=== PATIENT | female | born 1975 | race Caucasian/White ===

== ENCOUNTER 2023-07-02 20:22 | Emergency (ER) | payer MEDICAID, OTHER ==
[~2023-07-02] VITALS: Ht 165.1 cm; Wt 70.0 kg
[2023-07-02 20:43] VITALS: TEMP 98.2; O2SAT 100
[2023-07-02 21:45] LABS: BASOPHILS % 0.8 % (0.0-2.0); EOSINOPHILS % 3.7 % (0.0-5.0); HEMATOCRIT. 27.8 % (36.0-48.0); HEMOGLOBIN. 8.5 g/dL (12.0-16.0); LYMPHOCYTES % 26.4 % (20.0-50.0); MEAN CORPUSCULAR HEMOGLOBIN 20.3 pg (28.0-32.0); MEAN CORPUSCULAR HGB CONC 30.7 g/dL (31.0-37.0); MEAN CORPUSCULAR VOLUME 66.1 fL (81.0-99.0); MEAN PLATELET VOLUME 7.6 fl (7.4-10.4); NEUTROPHILS % 61.1 % (40.0-76.0); PLATELET 468 x1000/uL (130-400); RED CELL DISTRIBUTION WIDTH 18.3 % (11.6-14.6); WHITE BLOOD COUNT 7.4 x1000/uL (4.5-11.0)
[2023-07-02 21:47] LABS: ADD RBC MORPHOLOGY YES; DIFFERENTIAL COMMENT 1
[2023-07-02 21:51] LABS: CHLORIDE 107 mEq/L (98-107); POTASSIUM 4.3 mEq/L (3.5-5.1); SODIUM 139 mEq/L (136-145)
[2023-07-02 21:52] LABS: CARBON DIOXIDE 25 mEq/L (21-32)
[2023-07-02 21:53] LABS: CALCIUM 9.9 mg/dL (8.7-10.4)
[2023-07-02 21:57] LABS: CREATININE 0.8 mg/dL (0.6-1.0); GLUCOSE 99 mg/dL (70-105)
[2023-07-02 21:58] LABS: ANISOCYTOSIS 2+; HYPOCHROMASIA 2+; MICROCYTOSIS 3+; PLATELET ESTIMATE INCREASED; UREA NITROGEN BLOOD 9 mg/dL (9-23)
[2023-07-02 21:59] LABS: ALANINE AMINOTRANSFERASE 9 IU/L (10-49); ALBUMIN 4.6 g/dL (3.2-4.8); ASPARTATE AMINOTRANSFERASE 18 IU/L (<34); OVALOCYTES 1+
[2023-07-02 22:00] LABS: BILIRUBIN TOTAL 0.3 mg/dL (0.1-1.0); PROTEIN TOTAL 8.2 g/dL (6.0-8.3)
[2023-07-02] MEDS: ONDANSETRON HCL 4MG TABLET PO ONE (22:37)
[2023-07-02 23:32] VITALS: BP 112/53; PULSE 65; RESP 18
[2023-07-02] MEDS: KETOROLAC 15MG/ML VIAL IM ONE (23:32)
== END 2023-07-02 23:35 | disposition home or self-care (01) ==
LOC: ER 20:22
DX: N83.202 Unspecified ovarian cyst, left side (principal); D25.9 Leiomyoma of uterus, unspecified; R11.2 Nausea with vomiting, unspecified
CPT/HCPCS: 99285; 76705; 76830; 80053; 81025; 85025; 36415; 76856; 96372; Q0162; J1885

== ENCOUNTER 2023-10-31 20:18 | Emergency (ER) | payer OTHER ==
[~2023-10-31] VITALS: Ht 165.1 cm; Wt 73.0 kg
[2023-10-31 20:35] VITALS: O2SAT 100
[2023-10-31] MEDS: DIPHENHYDRAMINE 25MG CAPSULE PO ONE (21:15)
[2023-10-31] MEDS: KETOROLAC 15MG/ML VIAL IM ONE (21:15)
[2023-10-31] MEDS: METOCLOPRAMIDE HCL 10MG/2ML VIAL IM ONE (21:15)
[2023-10-31 21:35] LABS: BASOPHILS % 0.9 % (0.0-2.0); EOSINOPHILS % 3.4 % (0.0-5.0); HEMATOCRIT. 28.2 % (36.0-48.0); HEMOGLOBIN. 8.3 g/dL (12.0-16.0); LYMPHOCYTES % 31.9 % (20.0-50.0); MEAN CORPUSCULAR HEMOGLOBIN 19.1 pg (28.0-32.0); MEAN CORPUSCULAR HGB CONC 29.3 g/dL (31.0-37.0); MEAN CORPUSCULAR VOLUME 65.1 fL (81.0-99.0); MEAN PLATELET VOLUME 7.7 fl (7.4-10.4); MONOCYTES % 6.9 % (2.0-8.0); NEUTROPHILS % 56.9 % (40.0-76.0); PLATELET 476 x1000/uL (130-400); RED BLOOD CELL COUNT 4.34 mill/uL (4.2-5.4); RED CELL DISTRIBUTION WIDTH 17.7 % (11.6-14.6); WHITE BLOOD COUNT 5.6 x1000/uL (4.5-11.0)
[2023-10-31 21:36] LABS: DIFFERENTIAL COMMENT 1
[2023-10-31 21:37] LABS: ADD RBC MORPHOLOGY YES
[2023-10-31 21:40] LABS: CHLORIDE 107 mEq/L (98-107); POTASSIUM 4.3 mEq/L (3.5-5.1); SODIUM 138 mEq/L (136-145)
[2023-10-31 21:41] LABS: CARBON DIOXIDE 26 mEq/L (21-32)
[2023-10-31 21:42] LABS: CALCIUM 11.7 mg/dL (8.7-10.4)
[2023-10-31 21:46] LABS: CREATININE 0.8 mg/dL (0.6-1.0); GLUCOSE 103 mg/dL (70-105); UREA NITROGEN BLOOD 9 mg/dL (9-23)
[2023-10-31 21:51] LABS: HCG SCREEN NEGATIVE
[2023-10-31 21:52] LABS: CLARITY URINE CLEAR (CLEAR); COLOR URINE YELLOW (YELLOW); GLUCOSE URINE NEGATIVE (NEGATIVE); KETONES URINE NEGATIVE (NEGATIVE); LEUKOCYTE ESTERASE URINE NEGATIVE (NEGATIVE); NITRITE URINE NEGATIVE (NEGATIVE); OCCULT BLOOD URINE NEGATIVE (NEGATIVE); PROTEIN URINE NEGATIVE (NEGATIVE); SPECIFIC GRAVITY URINE 1.011 (1.005-1.030); UROBILINOGEN URINE 0.2 E.U./dL (0.2-1.0)
[2023-10-31 21:54] LABS: TROPONIN I HIGH SENSITIVITY < 4 ng/L (3.0-34)
[2023-10-31 22:53] LABS: HYPOCHROMASIA 2+; MICROCYTOSIS 3+; OVALOCYTES 1+; PLATELET ESTIMATE INCREASED
[2023-10-31 22:54] LABS: ANISOCYTOSIS 1+
[2023-10-31] MEDS ORDERED: NAPR-1176 MT (22:57)
[2023-10-31 23:30] VITALS: BP 115/80; PULSE 74; RESP 16; TEMP 36.94740; O2SAT 17
== END 2023-10-31 23:57 | disposition home or self-care (01) ==
LOC: ER 20:18
DX: Z88.0 Allergy status to penicillin (principal); R51.9 Headache, unspecified
CPT/HCPCS: 80048; 81003; 81025; 84703; 85025; 84484; 36415; 96372; 99284; Q0163; J1885; J2765; Z7610

== ENCOUNTER 2023-12-01 20:24 | Emergency (ER) | payer OTHER ==
[~2023-12-01] VITALS: Ht 165.1 cm; Wt 70.0 kg
[~2023-12-01 20:24] MED LIST: ACET-2708 MT; CIPR500S3 PO; METR375C2 PO; NAPR-1176 MT; PROT40 PO
[2023-12-01 20:33] VITALS: O2SAT 100
[2023-12-01] MEDS ORDERED: KETOROLAC 15MG/ML VIAL IM ONE (21:00)
[2023-12-01] MEDS ORDERED: LIDO700A15 TP (23:02)
[2023-12-01] MEDS: KETOROLAC 15MG/ML VIAL IM NR (23:59)
[2023-12-02] VITALS: BP 102/63; PULSE 70; RESP 20; TEMP 36.61404; O2SAT 100
== END 2023-12-02 00:02 | disposition home or self-care (01) ==
LOC: ER 20:24
DX: G89.18 Other acute postprocedural pain (principal); Z88.0 Allergy status to penicillin; Z79.899 Other long term (current) drug therapy
CPT/HCPCS: 99283; 81025; 96372; J1885